=== PATIENT | female | born 1995 | race African-American/Black ===

== ENCOUNTER 2016-08-05 03:27 | Emergency (ER) | payer OTHER ==
[2016-08-05 03:41] VITALS: TEMP 101
[2016-08-05] MEDS ORDERED: IBUPROFEN 600 MG TAB PO STA (03:57)
--- NOTE | 2016-08-05 04:03 | ED ---
ENT HPI - General Chief complaint: ENT Stated complaint: ENT Time Seen by Provider: 08/05/16 03:56 Source: patient, RN notes reviewed Mode of arrival: ambulatory Limitations: no limitations - History of Present Illness Initial comments: Patient is a 21-year-old female presents to the emergency room for evaluation of throat pain and fever. Patient states symptoms began developing on New ' s Na. Patient states pain has been been getting worse throughout the day. Patient states she is having on and off chills and hot flashes. Patient denies taking anything for her symptoms. Patient denies nausea or vomiting. Patient denies cough, shortness of breath. Patient denies receiving her influenza vaccine this year. Patient denies taking any medications. Patient denies headache or dizziness. Patient denies chest pain. - Related Data Home Medications Medication Instructions Recorded Confirmed No Known Home Medications [No 08/05/16 08/05/16 Known Home Medications] Allergies Allergy/AdvReac Type Severity Reaction Status Date / Time Fish Containing Products Allergy Anaphylaxis Verified 08/05/16 03:41 [Fish] Review of Systems ROS Statement: Those systems with pertinent positive or pertinent negative responses have been documented in the HPI. ROS Other: All systems not noted in ROS Statement are negative. Past Medical History Past Medical History: Asthma History of Any Multi-Drug Resistant Organisms: None Reported Past Surgical History: Breast Surgery Additional Past Surgical History / Comment(s): breast lumpectomy Past Anesthesia/Blood Transfusion Reactions: No Reported Reaction Past Psychological History: No Psychological Hx Reported Smoking Status: Never smoker Past Alcohol Use History: None Reported Past Drug Use History: None Reported - Past Family History Mother Family Medical History: Hypertension General Exam - General Exam Comments Initial Comments: Sitting in exam room in no acute distress. Limitations: no limitations General appearance: alert, in no apparent distress Head exam: Present: atraumatic, normocephalic, normal inspection Eye exam: Present: normal appearance, PERRL, EOMI Pupils: Present: normal accommodation Expanded Mouth exam: Present: normal external inspection Throat exam: tonsillar erythema, tonsillomegaly, tonsillar exudate Neck exam: Present: normal inspection Respiratory exam: Present: normal lung sounds bilaterally. Absent: respiratory distress Cardiovascular Exam: Present: regular rate, normal rhythm, normal heart sounds Extremities exam: Present: normal inspection Back exam: Present: normal inspection Neurological exam: Present: alert, oriented X3, CN II-XII intact, normal gait Psychiatric exam: Present: normal affect, normal mood Skin exam: Present: warm, dry, intact, normal color. Absent: rash Course Vital Signs 08/05/16 08/05/16 03:37 04:47 Temperature 101 F H 101 F H Pulse Rate 120 H 112 H Respiratory 20 16 Rate Blood Pressure 102/59 100/56 O2 Sat by Pulse 95 100 Oximetry Medical Decision Making - Lab Data Lab Results 08/05/16 08/05/16 Range/Units 03:44 03:44 Influenza Type A RNA Not Detected (Not Detectd) Influenza Type B (PCR) Not Detected (Not Detectd) Group A Strep Rapid Negative (Negative) Disposition Clinical Impression: Herpangina Disposition: HOME SELF-CARE Condition: Good Instructions: Hand, Foot, and Mouth Disease (ED) Additional Instructions: Alternate Tylenol and Motrin as needed for pain/fever. Please follow up with primary care provider in 1-2 days for reevaluation. If any new symptom arises or symptoms worsen, return to ER as soon as possible. Referrals: Raphael Greenfield MD [Primary Care Provider] - 1-2 days Time of Disposition: 05:10
[2016-08-05 04:48] VITALS: BP 100/56; PULSE 112; RESP 16
[2016-08-05] MEDS ORDERED: ACETAMINOPHEN TAB 325 MG TAB PO STA (05:02)
== END 2016-08-05 05:11 | disposition home or self-care (01) ==
LOC: EC 03:27
DX: B08.5 Enteroviral vesicular pharyngitis (principal); Z91.013 Allergy to seafood
CPT/HCPCS: 87081; 87430; 87502; 99283

== ENCOUNTER 2016-08-08 06:19 | Emergency (ER) | payer OTHER ==
[2016-08-08] MEDS ORDERED: KETOROLAC 30 MG/ML 1 ML VIAL IVP STA (07:07)
[2016-08-08] MEDS ORDERED: ACETAMINOPHEN IV (For NPO) 1,000 MG in EMPTY BAG 1 BAG IVPB STA (07:07)
[2016-08-08] MEDS ORDERED: DEXAMETHASONE SOD PHOSPHATE 10 MG/ML 1 ML VIAL IV STA (07:07)
[2016-08-08] MEDS ORDERED: SODIUM CHLORIDE 0.9% 1,000 ML IV STA ×3 (07:07→07:11)
[2016-08-08] MEDS ORDERED: SODIUM CHLORIDE 0.9% 500 ML IV STA (07:07)
[2016-08-08] MEDS ORDERED: AMPICILLIN-SULBACTAM 3 GM in SODIUM CHLORIDE 0.9% 100 ML IVPB STA (07:08)
--- NOTE | 2016-08-08 07:11 | ED ---
General Adult HPI - General Source: patient, RN notes reviewed, old records reviewed Mode of arrival: ambulatory Limitations: no limitations <Tristian Paul - Last Filed: 08/08/16 07:10> <Mare Wilkinson - Last Filed: 08/08/16 13:18> - General Chief complaint: ENT Stated complaint: ENT Time Seen by Provider: 08/08/16 06:32 - History of Present Illness Initial comments: This is a 21-year-old female ER for evaluation sore throat, severe sore throat difficulty swallowing and fever. Patient has had symptoms for 3-4 days, progressively worsening, no nausea, no vomiting. Patient's able to swallow but states her appetite has been diminished, no significant weight loss, no significant sick contacts or travel history. Patient was seen in emergency room 3 days prior for similar symptoms. Is given no treatment (Tristian Paul) - Related Data Home Medications Medication Instructions Recorded Confirmed Acetaminophen Tab [Tylenol Tab] 650 mg PO Q4H PRN 08/08/16 08/08/16 Albuterol Inhaler [Ventolin Hfa 1 - 2 puff INHALATION RT-Q6H PRN 08/08/16 Inhaler] Previous Rx's Medication Instructions Recorded Clindamycin [Cleocin] 450 mg PO Q6H #40 capsule 08/08/16 predniSONE 20 mg PO DAILY #5 tab 08/08/16 Allergies Allergy/AdvReac Type Severity Reaction Status Date / Time Fish Containing Products Allergy Anaphylaxis Verified 08/08/16 08:31 [Fish] Review of Systems ROS Other: All systems not noted in ROS Statement are negative. <Tristian Paul - Last Filed: 08/08/16 07:10> ROS Other: All systems not noted in ROS Statement are negative. <Mare Wilkinson - Last Filed: 08/08/16 13:18> ROS Statement: Those systems with pertinent positive or pertinent negative responses have been documented in the HPI. Past Medical History Past Medical History: Asthma History of Any Multi-Drug Resistant Organisms: None Reported Past Surgical History: Breast Surgery Additional Past Surgical History / Comment(s): left breast lumpectomy-benign Past Anesthesia/Blood Transfusion Reactions: No Reported Reaction Past Psychological History: No Psychological Hx Reported Smoking Status: Never smoker Past Alcohol Use History: None Reported Past Drug Use History: None Reported - Past Family History Mother Family Medical History: Hypertension <Tristian Paul - Last Filed: 08/08/16 07:10> General Exam Limitations: no limitations General appearance: alert, in no apparent distress Head exam: Present: atraumatic, normocephalic, normal inspection Eye exam: Present: normal appearance, PERRL, EOMI. Absent: scleral icterus, conjunctival injection, periorbital swelling ENT exam: Present: other (Patient does have bilateral tonsillar erythema, exudates, lymphadenopathy) Neck exam: Present: normal inspection. Absent: tenderness, meningismus, lymphadenopathy Respiratory exam: Present: normal lung sounds bilaterally. Absent: respiratory distress, wheezes, rales, rhonchi, stridor Cardiovascular Exam: Present: regular rate, normal rhythm, normal heart sounds. Absent: systolic murmur, diastolic murmur, rubs, gallop, clicks GI/Abdominal exam: Present: soft, normal bowel sounds. Absent: distended, tenderness, guarding, rebound, rigid Extremities exam: Present: normal inspection, full ROM, normal capillary refill. Absent: tenderness, pedal edema, joint swelling, calf tenderness Back exam: Present: normal inspection Neurological exam: Present: alert, oriented X3, CN II-XII intact Psychiatric exam: Present: normal affect, normal mood Skin exam: Present: warm, dry, intact, normal color. Absent: rash <Tristian Paul - Last Filed: 08/08/16 07:10> Course <Tristian Paul - Last Filed: 08/08/16 07:10> <Mare Wilkinson - Last Filed: 08/08/16 13:18> Vital Signs 08/08/16 08/08/16 06:40 10:33 Temperature 101.3 F H 98 F Pulse Rate 131 H 67 Respiratory 16 18 Rate Blood Pressure 111/72 111/58 O2 Sat by Pulse 98 99 Oximetry Patient was reassessed at 1300 she is feeling better she is drinking throat is not better not drooling no shortness of breath and wants to go (Mare Wilkinson) Medical Decision Making - Lab Data Result diagrams: 08/08/16 07:20 08/08/16 07:20 <Minh,Mare - Last Filed: 08/08/16 13:18> - Lab Data Lab Results 08/08/16 08/08/16 08/08/16 Range/Units 07:20 07:20 07:20 WBC 7.1 (3.8-10.6) k/uL RBC 4.87 (3.80-5.40) m/uL Hgb 13.1 (11.4-16.0) gm/dL Hct 40.7 (34.0-46.0) % MCV 83.6 (80.0-100.0) fL MCH 27.0 (25.0-35.0) pg MCHC 32.3 (31.0-37.0) g/dL RDW 12.4 (11.5-15.5) % Plt Count 206 (150-450) k/uL Neutrophils % 78 % Lymphocytes % 14 % Monocytes % 5 % Eosinophils % 1 % Basophils % 1 % Neutrophils # 5.5 (1.3-7.7) k/uL Lymphocytes # 1.0 (1.0-4.8) k/uL Monocytes # 0.4 (0-1.0) k/uL Eosinophils # 0.1 (0-0.7) k/uL Basophils # 0.1 (0-0.2) k/uL Sodium 148 H (137-145) mmol/L Potassium 3.5 (3.5-5.1) mmol/L Chloride 107 (98-107) mmol/L Carbon Dioxide 24 (22-30) mmol/L Anion Gap 17 mmol/L BUN 6 L (7-17) mg/dL Creatinine 0.86 (0.52-1.04) mg/dL Est GFR (MDRD) Af Amer >60 (>60 ml/min/1.73 sqM) Est GFR (MDRD) Non-Af >60 (>60 ml/min/1.73 sqM) Glucose 91 (74-99) mg/dL Plasma Lactic Acid Lee (0.7-2.0) mmol/L Calcium 9.4 (8.4-10.2) mg/dL Phosphorus 2.9 (2.5-4.5) mg/dL Magnesium 2.2 (1.6-2.3) mg/dL Total Bilirubin 0.5 (0.2-1.3) mg/dL AST 24 (14-36) U/L ALT 30 (9-52) U/L Alkaline Phosphatase 97 (38-126) U/L Total Protein 7.5 (6.3-8.2) g/dL Albumin 4.1 (3.5-5.0) g/dL Urine Color Urine Appearance (Clear) Urine pH (5.0-8.0) Ur Specific [place] (1.001-1.035) Urine Protein (Negative) Urine Glucose (UA) (Negative) Urine Ketones (Negative) Urine Blood (Negative) Urine Nitrate (Negative) Urine Bilirubin (Negative) Urine Urobilinogen (<2.0) mg/dL Ur Leukocyte Esterase (Negative) Urine RBC (0-5) /hpf Urine WBC (0-5) /hpf Ur Squamous Epith Cells (0-4) /hpf WBC Casts (0) /lpf Urine Mucus (None) /hpf Urine HCG, Qual (Not Detectd) Group A Strep Rapid Negative (Negative) 08/08/16 08/08/16 08/08/16 Range/Units 07:20 07:20 07:20 WBC (3.8-10.6) k/uL RBC (3.80-5.40) m/uL Hgb (11.4-16.0) gm/dL Hct (34.0-46.0) % MCV (80.0-100.0) fL MCH (25.0-35.0) pg MCHC (31.0-37.0) g/dL RDW (11.5-15.5) % Plt Count (150-450) k/uL Neutrophils % % Lymphocytes % % Monocytes % % Eosinophils % % Basophils % % Neutrophils # (1.3-7.7) k/uL Lymphocytes # (1.0-4.8) k/uL Monocytes # (0-1.0) k/uL Eosinophils # (0-0.7) k/uL Basophils # (0-0.2) k/uL Sodium (137-145) mmol/L Potassium (3.5-5.1) mmol/L Chloride (98-107) mmol/L Carbon Dioxide (22-30) mmol/L Anion Gap mmol/L BUN (7-17) mg/dL Creatinine (0.52-1.04) mg/dL Est GFR (MDRD) Af Amer (>60 ml/min/1.73 sqM) Est GFR (MDRD) Non-Af (>60 ml/min/1.73 sqM) Glucose (74-99) mg/dL Plasma Lactic Acid Lee 1.1 (0.7-2.0) mmol/L Calcium (8.4-10.2) mg/dL Phosphorus (2.5-4.5) mg/dL Magnesium (1.6-2.3) mg/dL Total Bilirubin (0.2-1.3) mg/dL AST (14-36) U/L ALT (9-52) U/L Alkaline Phosphatase (38-126) U/L Total Protein (6.3-8.2) g/dL Albumin (3.5-5.0) g/dL Urine Color Yellow Urine Appearance Cloudy H (Clear) Urine pH 6.0 (5.0-8.0) Ur Specific [place] 1.017 (1.001-1.035) Urine Protein 2+ H (Negative) Urine Glucose (UA) Negative (Negative) Urine Ketones 1+ H (Negative) Urine Blood Negative (Negative) Urine Nitrate Negative (Negative) Urine Bilirubin Negative (Negative) Urine Urobilinogen <2.0 (<2.0) mg/dL Ur Leukocyte Esterase Moderate H (Negative) Urine RBC 1 (0-5) /hpf Urine WBC 29 H (0-5) /hpf Ur Squamous Epith Cells 6 H (0-4) /hpf WBC Casts 4 (0) /lpf Urine Mucus Occasional H (None) /hpf Urine HCG, Qual Not Detected (Not Detectd) Group A Strep Rapid (Negative) Disposition <Tristian Paul - Last Filed: 08/08/16 07:10> <Mare Wilkinson - Last Filed: 08/08/16 13:18> Clinical Impression: Pharyngitis, Cystitis Disposition: HOME SELF-CARE Condition: Good Instructions: Pharyngitis (ED) Prescriptions: Clindamycin [Cleocin] 450 mg PO Q6H #40 capsule predniSONE 20 mg PO DAILY #5 tab
[2016-08-08] MEDS ORDERED: MORPHINE SULFATE 4 MG/ML SYRINGE IVP STA (07:12)
[2016-08-08 07:40] LABS: Basophils # (A) 0.1 k/uL (0-0.2); Basophils % (A) 1 %; CH 28.1; CHCM 33.7; Eosinophils # (A) 0.1 k/uL (0-0.7); Eosinophils % (A) 1 %; HCT 40.7 % (34.0-46.0); HDW 2.76; HGB 13.1 gm/dL (11.4-16.0); Luc # (Auto) 0.15; Luc % (Auto) 2; Lymphocytes % (A) 14 %; MCHC 32.3 g/dL (31.0-37.0); MCV 83.6 fL (80.0-100.0); Mean Platelet Volume 7.2; Monocytes # (A) 0.4 k/uL (0-1.0); Monocytes % (A) 5 %; Neutrophils # (A) 5.5 k/uL (1.3-7.7); Neutrophils % (A) 78 %; RBC 4.87 m/uL (3.80-5.40); RDW 12.4 % (11.5-15.5); WBC 7.1 k/uL (3.8-10.6); WBC (Perox) 7.24
[2016-08-08 07:47] LABS: Appearance,Urine Cloudy (Clear); Bilirubin,Urine Negative (Negative); Glucose,Urine (UA) Negative (Negative); Ketones,Urine 1+ (Negative); Leukocyte Esterase,Urine Moderate (Negative); Mucus,Urine Occasional /hpf; Nitrite,Urine Negative (Negative); Particle Count 6423; Protein,Urine 2+ (Negative); RBC,Urine 1 /hpf (0-5); Specific Gravity,Urine 1.017 (1.001-1.035); Squamous Epithelial Cell,Urine 6 /hpf (0-4); UA Billing (MACRO vs. MICRO) MICRO; Urobilinogen,Urine <2.0 mg/dL (<2.0); WBC,Urine 29 /hpf (0-5)
[2016-08-08 07:54] LABS: ALT 30 U/L (9-52); AST 24 U/L (14-36); Alkaline Phosphatase 97 U/L (38-126); Anion Gap 17 mmol/L; Blood Urea Nitrogen 6 mg/dL (7-17); Calcium 9.4 mg/dL (8.4-10.2); Carbon Dioxide 24 mmol/L (22-30); Chloride 107 mmol/L (98-107); Glucose 91 mg/dL (74-99); Magnesium 2.2 mg/dL (1.6-2.3); Non-African American GFR(MDRD) >60 (>60 ml/min/1.73 sqM); Phosphorous 2.9 mg/dL (2.5-4.5); Potassium 3.5 mmol/L (3.5-5.1); Sodium 148 mmol/L (137-145); Total Bilirubin 0.5 mg/dL (0.2-1.3); Total Protein 7.5 g/dL (6.3-8.2)
--- NOTE | 2016-08-08 08:54 | XR ---
EXAMINATION TYPE: XR soft tissue neck DATE OF EXAM: 08/08/2016 8:26 AM COMPARISON: NONE HISTORY: Pain TECHNIQUE: 2 views of the soft tissues of the neck are submitted. FINDINGS: The airway is patent. Normal appearing epiglottis. Retropharyngeal soft tissues are withi n normal limits. No evidence for radiopaque foreign body. IMPRESSION: Negative study
[2016-08-08 10:34] VITALS: RESP 18
[2016-08-08] MEDS ORDERED: AMPICILLIN-SULBACTAM 3 GM in SODIUM CHLORIDE 0.9% 100 ML IVPB SCH (12:00)
[2016-08-08 13:31] VITALS: BP 113/63; PULSE 74; TEMP 98
== END 2016-08-08 13:33 | disposition home or self-care (01) ==
LOC: EC 06:19
DX: J02.9 Acute pharyngitis, unspecified (principal); N30.90 Cystitis, unspecified without hematuria; Z91.013 Allergy to seafood; J45.909 Unspecified asthma, uncomplicated
CPT/HCPCS: 96365; 96375 ×4; 96361 ×3; 99284; 36415; 80053; 83605; 83735; 84100; 85025; 81001; 81025; 87040; 87086; 87081; 87430; 70360; J2270; J1100; J1885; J0295; J0131

== ENCOUNTER 2020-06-01 16:34 | Emergency (ER) | payer OTHER ==
[2020-06-01 16:47] VITALS: BP 101/58; PULSE 60; RESP 16; TEMP 101.4
[2020-06-01] MEDS ORDERED: DEXAMETHASONE SOD PHOSPHATE 10 MG/ML 1 ML VIAL PO STA (17:07)
[2020-06-01] MEDS ORDERED: IBUPROFEN 600 MG TAB PO STA (17:07)
--- NOTE | 2020-06-01 17:10 | ED ---
ENT HPI - General Chief complaint: ENT Stated complaint: Sore throat Time Seen by Provider: 06/01/20 16:52 Source: patient, RN notes reviewed Mode of arrival: ambulatory Limitations: no limitations - History of Present Illness Initial comments: This a 25-year-old female presents emergency Department with chief complaint of sore throat, fever. Patient states symptoms started last 48 hours. She is not taking some time Motrin denies any fatigue no abdominal pain states it's just painful to swallow. Patient states she's not been around any known sick contacts. Patient denies headache dizziness or neck stiffness. - Related Data Home Medications Medication Instructions Recorded Confirmed Acetaminophen Tab [Tylenol Tab] 650 mg PO Q4H PRN 08/08/16 08/08/16 Albuterol Inhaler (Mhu) [Ventolin 1 - 2 puff INHALATION RT-Q6H PRN 08/08/16 08/08/16 Hfa Inhaler] Previous Rx's Medication Instructions Recorded Clindamycin [Cleocin] 450 mg PO Q6H #40 capsule 08/08/16 predniSONE [Deltasone] 20 mg PO DAILY #5 tab 08/08/16 Amoxicillin 500 mg PO Q8H #30 capsule 06/01/20 Allergies Allergy/AdvReac Type Severity Reaction Status Date / Time Fish Containing Products Allergy Anaphylaxis Verified 06/01/20 16:47 [Fish] Review of Systems ROS Statement: Those systems with pertinent positive or pertinent negative responses have been documented in the HPI. ROS Other: All systems not noted in ROS Statement are negative. Past Medical History Past Medical History: Asthma History of Any Multi-Drug Resistant Organisms: None Reported Past Surgical History: Breast Surgery Additional Past Surgical History / Comment(s): left breast lumpectomy-benign Past Anesthesia/Blood Transfusion Reactions: No Reported Reaction Past Psychological History: No Psychological Hx Reported Past Alcohol Use History: None Reported Past Drug Use History: None Reported - Past Family History Mother Family Medical History: Hypertension General Exam General appearance: alert, in no apparent distress Head exam: Present: atraumatic, normocephalic, normal inspection Eye exam: Present: normal appearance, PERRL, EOMI. Absent: scleral icterus, conjunctival injection, periorbital swelling ENT exam: Present: mucous membranes moist, TM's normal bilaterally. Absent: normal oropharynx (Erythematous posterior pharynx, mild edematous tonsils with exudates no difficulty swan secretions) Neck exam: Present: normal inspection, full ROM. Absent: tenderness, meningismus, lymphadenopathy Respiratory exam: Present: normal lung sounds bilaterally. Absent: respiratory distress, wheezes, rales, rhonchi, stridor Cardiovascular Exam: Present: regular rate, normal rhythm, normal heart sounds. Absent: systolic murmur, diastolic murmur, rubs, gallop, clicks GI/Abdominal exam: Present: soft, normal bowel sounds. Absent: distended, tenderness, guarding, rebound, rigid Course Vital Signs 06/01/20 16:45 Temperature 101.4 F H Pulse Rate 60 Respiratory 16 Rate Blood Pressure 101/58 O2 Sat by Pulse 97 Oximetry Medical Decision Making - Medical Decision Making Patient we treated for clinical suspected strep pharyngitis. Patient was started on amoxicillin. Patient was given a dose of Decadron for mild swelling. Was instructed to alternate Tylenol Motrin as directed. Disposition Clinical Impression: Acute pharyngitis Disposition: HOME SELF-CARE Condition: Stable Instructions (If sedation given, give patient instructions): Pharyngitis (ED) Additional Instructions: Please return to the Emergency Department if symptoms worsen or any other concerns. Prescriptions: Amoxicillin 500 mg PO Q8H #30 capsule Is patient prescribed a controlled substance at d/c from ED?: No Referrals: Raphael Greenfield MD [Primary Care Provider] - 1-2 days Time of Disposition: 17:09
== END 2020-06-01 17:18 | disposition home or self-care (01) ==
LOC: EC 16:34
DX: J02.9 Acute pharyngitis, unspecified (principal); J45.909 Unspecified asthma, uncomplicated; Z91.013 Allergy to seafood
CPT/HCPCS: 99282; J1100

== ENCOUNTER 2021-05-14 09:41 | Emergency (ER) | payer OTHER ==
--- NOTE | 2021-05-14 10:05 | ED ---
General Adult HPI - General Chief complaint: ENT Stated complaint: sorethroat Time Seen by Provider: 05/14/21 09:55 Source: patient, RN notes reviewed Mode of arrival: ambulatory Limitations: no limitations - History of Present Illness Initial comments: 26-year-old female presents emergency from chief complaint of fever, sore throat, body aches, headache cough. Patient states she was recently exposed COVID-19. Patient denies any chest pain denies any nausea vomiting diarrhea constipation. She has not taken any Tylenol Motrin. She states symptoms primary started today have worsened while she was at work. 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 - Related Data Home Medications Medication Instructions Recorded Confirmed Acetaminophen Tab [Tylenol Tab] 650 mg PO Q4H PRN 08/08/16 08/08/16 Albuterol Inhaler (Mhu) [Ventolin 1 - 2 puff INHALATION RT-Q6H PRN 08/08/16 08/08/16 Hfa Inhaler] Previous Rx's Medication Instructions Recorded Clindamycin [Cleocin] 450 mg PO Q6H #40 capsule 08/08/16 predniSONE [Deltasone] 20 mg PO DAILY #5 tab 08/08/16 Amoxicillin 500 mg PO Q8H #30 capsule 06/01/20 Amoxicillin 500 mg PO Q8H #30 cap 05/14/21 Allergies Allergy/AdvReac Type Severity Reaction Status Date / Time Fish Containing Products Allergy Anaphylaxis Verified 05/14/21 09:57 [Fish] Review of Systems ROS Statement: Those systems with pertinent positive or pertinent negative responses have been documented in the HPI. ROS Other: All systems not noted in ROS Statement are negative. Past Medical History Past Medical History: Asthma History of Any Multi-Drug Resistant Organisms: None Reported Past Surgical History: Breast Surgery Additional Past Surgical History / Comment(s): left breast lumpectomy-benign Past Anesthesia/Blood Transfusion Reactions: No Reported Reaction Past Psychological History: No Psychological Hx Reported Smoking Status: Never smoker Past Alcohol Use History: None Reported Past Drug Use History: None Reported - Past Family History Mother Family Medical History: Hypertension General Exam General appearance: alert, in no apparent distress Head exam: Present: atraumatic, normocephalic, normal inspection Eye exam: Present: normal appearance, PERRL, EOMI. Absent: scleral icterus, conjunctival injection, periorbital swelling ENT exam: Present: normal exam, normal oropharynx, mucous membranes moist Neck exam: Present: normal inspection, full ROM. Absent: tenderness, meningismus, lymphadenopathy Respiratory exam: Present: normal lung sounds bilaterally. Absent: respiratory distress, wheezes, rales, rhonchi, stridor Cardiovascular Exam: Present: regular rate, normal rhythm, normal heart sounds. Absent: systolic murmur, diastolic murmur, rubs, gallop, clicks Neurological exam: Present: alert, oriented X3, CN II-XII intact, reflexes normal. Absent: motor sensory deficit Skin exam: Present: warm, dry, intact, normal color. Absent: rash Course Vital Signs 05/14/21 09:54 Temperature 99.1 F Pulse Rate 107 H Respiratory 18 Rate Blood Pressure 96/66 O2 Sat by Pulse 100 Oximetry Medical Decision Making - Medical Decision Making COVID-19 is negative. Patient we treated for acute pharyngitis return parameters were discussed. - Lab Data Lab Results 05/14/21 Range/Units 10:02 Coronavirus (PCR) Not Detected (Not Detectd) Disposition Clinical Impression: Acute pharyngitis Disposition: HOME SELF-CARE Condition: Stable Instructions (If sedation given, give patient instructions): Pharyngitis (ED) Additional Instructions: Please return to the Emergency Department if symptoms worsen or any other concerns. Prescriptions: Amoxicillin 500 mg PO Q8H #30 cap Is patient prescribed a controlled substance at d/c from ED?: No Referrals: Rocio Huang MD [Primary Care Provider] - 1-2 days Time of Disposition: 10:51
[2021-05-14 11:10] VITALS: BP 112/69; PULSE 83; RESP 16; TEMP 98.8
== END 2021-05-14 11:07 | disposition home or self-care (01) ==
LOC: EC 09:41
DX: J02.9 Acute pharyngitis, unspecified (principal); J45.909 Unspecified asthma, uncomplicated; Z20.822 Contact with and (suspected) exposure to COVID-19
CPT/HCPCS: 87635; 99284

== ENCOUNTER 2022-03-05 19:31 | Emergency (ER) | payer OTHER ==
[2022-03-05 19:35] VITALS: BP 114/76; PULSE 89; RESP 16; TEMP 99.6
[2022-03-05] MEDS ORDERED: IBUPROFEN 600 MG TAB PO STA (20:08)
--- NOTE | 2022-03-05 20:17 | ED ---
General Adult HPI - General Chief complaint: Fever Stated complaint: Fever,body ache,Sore throat-wants covid screening Time Seen by Provider: 03/05/22 19:38 Source: patient, RN notes reviewed Mode of arrival: ambulatory - History of Present Illness Initial comments: 27-year-old female presents to the emergency Department with complaints of fever, sore throat, and body aches. Patient states her symptoms began last night and have progressed throughout the day today. States she has restless and uncomfortable. Took Tylenol prior to arrival. States she traveled home from [place] yesterday. Has not been vaccinated against influenza or Covid. Denies chest pain, shortness of breath, difficulty breathing, abdominal pain, nausea, vomiting, diarrhea, or dysuria. - Related Data Previous Rx's Medication Instructions Recorded Amoxicillin 500 mg PO Q8H #30 cap 05/14/21 Allergies Allergy/AdvReac Type Severity Reaction Status Date / Time Fish Containing Products Allergy Anaphylaxis Verified 03/05/22 19:35 [Fish] Review of Systems ROS Statement: Those systems with pertinent positive or pertinent negative responses have been documented in the HPI. ROS Other: All systems not noted in ROS Statement are negative. Past Medical History Past Medical History: Asthma History of Any Multi-Drug Resistant Organisms: None Reported Past Surgical History: Breast Surgery Additional Past Surgical History / Comment(s): left breast lumpectomy-benign Past Anesthesia/Blood Transfusion Reactions: No Reported Reaction Past Psychological History: No Psychological Hx Reported Smoking Status: Never smoker Past Alcohol Use History: None Reported Past Drug Use History: None Reported - Past Family History Mother Family Medical History: Hypertension General Exam Limitations: no limitations (Well-developed, well-nourished female in no acute distress. Initial temperature 99.6, pulse 89, respirations 16, blood pressure 114/76, pulse ox 97% on room air.) General appearance: alert, in no apparent distress ENT exam: Present: normal exam, normal oropharynx, mucous membranes moist, TM's normal bilaterally Neck exam: Present: normal inspection, full ROM. Absent: tenderness, meningismus, lymphadenopathy Respiratory exam: Present: normal lung sounds bilaterally. Absent: respiratory distress, wheezes, rales, rhonchi, stridor Cardiovascular Exam: Present: regular rate, normal rhythm, normal heart sounds. Absent: systolic murmur, diastolic murmur, rubs, gallop, clicks GI/Abdominal exam: Present: soft, normal bowel sounds. Absent: distended, tenderness, guarding, rebound, rigid Back exam: Absent: CVA tenderness (R), CVA tenderness (L) Neurological exam: Present: alert, oriented X3, CN II-XII intact Psychiatric exam: Present: normal affect, normal mood Skin exam: Present: warm, dry, intact, normal color. Absent: rash Course Vital Signs 03/05/22 19:33 Temperature 99.6 F Pulse Rate 89 Respiratory 16 Rate Blood Pressure 114/76 O2 Sat by Pulse 97 Oximetry Medical Decision Making - Medical Decision Making This is a 27-year-old female with no significant past medical history who presents to the emergency department with fever, sore throat, and body aches area upon exam, patient is well-appearing and in no acute distress. Physical exam findings are unremarkable. She does endorse recent air travel and has not been vaccinated for Covid or influenza. She was given Motrin for discomfort with some improvement. She has not experienced any chest pain or shortness of breath therefore imaging was not obtained. She did test positive for Covid. Instructed to alternate Tylenol and Motrin for fever control and body aches. Encouraged to obtain vitamin C, vitamin D, and zinc for supplementation. Discussed importance of hydration and rest. Instructed to adhere to current CDC guidelines including a 5 day quarantine followed by 5 days of wearing a mask in public. Instructed to follow up with PCP via telephone or video visit for a recheck. Return parameters discussed in detail. Patient verbalizes understanding and agrees with this plan. Attending: Ludwin. - Lab Data Lab Results 03/05/22 03/05/22 Range/Units 20:16 20:16 Coronavirus (PCR) Detected A (Not Detectd) Influenza Type A RNA Not Detected (Not Detectd) Influenza Type B (PCR) Not Detected (Not Detectd) Disposition Clinical Impression: COVID-19 Disposition: HOME SELF-CARE Condition: Stable Instructions (If sedation given, give patient instructions): COVID-19 (Coronavirus Disease 2019) (ED) Additional Instructions: Alternate Tylenol and Motrin as needed for fever control.. Increase intake of fluids; consider an electrolyte solution such as Gatorade or Powerade. Remain home for the next 5 days. Please wear a mask the subsequent 5 days while out in public. Follow-up with your PCP for a recheck if needed. This may be done via telephone or video visit. Return to the emergency department with any new, worsening, or concerning symptoms such as shortness of breath, difficulty breathing, or chest pain. Is patient prescribed a controlled substance at d/c from ED?: No Referrals: None,Stated [Primary Care Provider] - 1-2 days Time of Disposition: 21:02
== END 2022-03-05 21:08 | disposition home or self-care (01) ==
LOC: EC 19:31
DX: U07.1 COVID-19 (principal); J45.909 Unspecified asthma, uncomplicated; Z91.013 Allergy to seafood; Z79.2 Long term (current) use of antibiotics; Z28.310 Unvaccinated for COVID-19
CPT/HCPCS: 87502; 87635; 99283